=== PATIENT | female | born 1995 | race Caucasian/White ===

== ENCOUNTER 2022-03-22 03:29 | Emergency (ER) | payer OTHER ==
[2022-03-22] MEDS ORDERED: NORFLEX 100 MG100 MG PO (04:45)
[2022-03-22] MEDS ORDERED: IBUPROFEN600 MG PO (04:45)
== END 2022-03-22 05:26 | disposition home or self-care (01) ==
LOC: ER1 03:29
DX: S93.402A Sprain of unspecified ligament of left ankle, initial encounter (principal); S80.212A Abrasion, left knee, initial encounter; F17.210 Nicotine dependence, cigarettes, uncomplicated; Z88.0 Allergy status to penicillin; X50.9XXA Other and unspecified overexertion or strenuous movements or postures, initial encounter; Y92.009 Unspecified place in unspecified non-institutional (private) residence as the place of occurrence of the external cause
CPT/HCPCS: 73562; 73600; 99283